=== PATIENT | female | born 2000 | race Caucasian/White ===

== ENCOUNTER 2022-12-30 08:58 | Inpatient (IN) | payer OTHER ==
[2022-12-30 19:21] VITALS: BMI 35.2
[2022-12-30] MEDS ORDERED: HYDROcodone/Acetaminophen 5/325 mg Tablet PO PRN ×2 (20:08)
[2022-12-30] MEDS ORDERED: Ibuprofen 800 MG TAB PO PRN (20:08)
[2022-12-30] MEDS ORDERED: Butorphanol Tartrate 1 MG/ML VIAL SLOW IVP PRN (20:08)
[2022-12-30] MEDS ORDERED: Lactated Ringer's 1,000 ML IV SCH (20:08)
[2022-12-30] MEDS ORDERED: NS w/ Oxytocin 30 units 500 ML IV SCH ×3 (20:08)
[2022-12-30] MEDS ORDERED: hydrALAZINE 20 MG/ML VIAL SLOW IVP PRN (20:08)
[2022-12-30] MEDS ORDERED: Lidocaine 1% (PF) 30 ML VIAL SC PRN (20:08)
[2022-12-30] MEDS ORDERED: Ondansetron PF 4 MG/2 ML Vial IVP PRN (20:08)
[2022-12-30] MEDS ORDERED: Promethazine HCl 25 MG/ML VIAL IM PRN (20:08)
[2022-12-30 20:39] LABS: Hemoglobin 12.4 g/dL (12.0-15.5); Mean Corpuscular HGB CONC 34.2 g/dL (32.0-36.0); Mean Corpuscular Hemoglobin 31.2 pg (27.0-33.0); Mean Corpuscular Volume 91.4 fl (81.6-98.3); Mean Platelet Volume 9.5 fl (7.4-10.4); Platelet Count 310 10x3/uL (150-450); RBC Distribution Width 13.2 % (11.5-14.5); Red Blood Cell (RBC) Count 3.97 10x6/uL (3.90-5.03); White Blood Cell (WBC) Count 14.5 10x3/uL (3.5-10.5)
[2022-12-30 21:03] LABS: Syphilis Antibody Nonreactive (Nonreactive); Syphilis Antibody Index 0.05 S/CO (<1.00 Non-Reactive)
[2022-12-30 21:04] LABS: HBSAg Index 0.14 S/CO (0-0.99); Hep B Surf Ag - L&D Non-Reactive S/CO (NonReactive)
[2022-12-31] MEDS ORDERED: Fentanyl 100 MCG/2 ML VIAL ONE (11:23)
[2022-12-31] MEDS ORDERED: Fentanyl 2 mcg/Bup 0.1% Cadd 100 ML ONE (11:39)
[2022-12-31] MEDS ORDERED: ePHEDrine Sulfate 50 MG/10 ML VIAL SLOW IVP PRN (13:23)
[2022-12-31] MEDS ORDERED: Promethazine HCl 25 MG/ML VIAL IM PRN (13:23)
[2022-12-31] MEDS ORDERED: Naloxone HCl 0.4 mg/ml Vial IVP PRN ×2 (13:23)
[2022-12-31] MEDS ORDERED: Ondansetron PF 4 MG/2 ML Vial IVP PRN ×2 (13:23→21:28)
[2022-12-31] MEDS ORDERED: Lactated Ringer's 500 ML IV PRN (13:23)
[2022-12-31] MEDS ORDERED: Acetaminophen 325 MG TAB PO PRN (13:23)
[2022-12-31] MEDS ORDERED: diphenhydrAMINE 50 MG/ML VIAL IVP PRN (13:23)
[2022-12-31] MEDS ORDERED: Moisturizing Cream (Eucerin) 113 GM JAR TOP PRN (13:23)
[2022-12-31] MEDS ORDERED: Communication Order-Pharmacy FS SCH (13:30)
[2022-12-31] MEDS ORDERED: Fentanyl 2 mcg/Bupivacaine 0.1% Cassette 100 ML EPIDURAL SCH (13:30)
[2022-12-31] MEDS ORDERED: NS w/ Oxytocin 30 units 500 ML IV SCH (21:28)
[2022-12-31] MEDS ORDERED: Benzocaine-Menthol 82.5 ML CAN TOP PRN (21:28)
[2022-12-31] MEDS ORDERED: Lanolin Ointment 7 GM TUBE TOP PRN (21:28)
[2022-12-31] MEDS ORDERED: Preparation H Ointment 28 GM TUBE PR PRN (21:28)
[2022-12-31] MEDS ORDERED: diphenhydrAMINE 25 MG CAP PO PRN (21:28)
[2022-12-31] MEDS ORDERED: HYDROcodone/Acetaminophen 5/325 mg Tablet PO PRN ×2 (21:28)
[2022-12-31] MEDS ORDERED: Bisacodyl 10 MG SUPP PR PRN (21:28)
[2022-12-31] MEDS ORDERED: Boostrix 0.5 ML (Tdap) VIAL (>/=7 yrs of age) IM ONE (21:28)
[2022-12-31] MEDS ORDERED: hydrALAZINE 20 MG/ML VIAL SLOW IVP PRN (21:28)
[2022-12-31] MEDS ORDERED: Milk Of Magnesia 30 ML UDCUP PO PRN (21:28)
[2022-12-31] MEDS ORDERED: Docusate 100 MG CAP PO SCH (21:45)
[2022-12-31] MEDS: Ibuprofen 800 MG TAB PO SCH (21:53)
[2023-01-01] MEDS: Ibuprofen 800 MG TAB PO SCH ×3 (05:57→22:08)
[2023-01-01] MEDS: Ferrous Sulfate 325 MG TAB PO SCH ×2 (09:14→19:27)
[2023-01-01] MEDS: Docusate 100 MG CAP PO SCH ×2 (09:14→22:08)
[2023-01-01] MEDS: Prenatal Vitamin 1 TAB PO SCH (09:14)
[2023-01-02] MEDS: Ibuprofen 800 MG TAB PO SCH (05:32)
[2023-01-02] MEDS: Ferrous Sulfate 325 MG TAB PO SCH (07:44)
[2023-01-02] MEDS: Prenatal Vitamin 1 TAB PO SCH (08:21)
[2023-01-02] MEDS: Docusate 100 MG CAP PO SCH (08:21)
[2023-01-02 08:23] VITALS: BP 113/59; TEMP 97.6
== END 2023-01-02 11:45 | disposition home or self-care (01) | DRG 807 ==
LOC: CSHLD 18:44 → CSHPP 12-31 21:37
PROVIDERS: ADMIT Obstetrics & Gynecology; ATTEND Obstetrics & Gynecology
PROC: 10E0XZZ Delivery of Products of Conception, External Approach (ICD-10-PCS; principal; 2022-12-31)
PROC: 0HQ9XZZ Repair Perineum Skin, External Approach (ICD-10-PCS; 2022-12-31)
DX: O36.5930 Maternal care for other known or suspected poor fetal growth, third trimester, not applicable or unspecified (principal); Z37.0 Single live birth; Z3A.37 37 weeks gestation of pregnancy; F32.A Depression, unspecified; F41.9 Anxiety disorder, unspecified; O99.344 Other mental disorders complicating childbirth; Z79.899 Other long term (current) drug therapy; Z88.2 Allergy status to sulfonamides; Z88.8 Allergy status to other drugs, medicaments and biological substances; O76 Abnormality in fetal heart rate and rhythm complicating labor and delivery; O43.893 Other placental disorders, third trimester; O70.0 First degree perineal laceration during delivery
CPT/HCPCS: 36415; 51702; 85027; 86780; 86850; 86900; 86901; 87340; J2405; J2590; J3010